=== PATIENT | male | born 1990 | race Caucasian/White ===

== ENCOUNTER 2022-01-04 03:32 | Inpatient (IN) | payer SELFPAY ==
[~2022-01-04] VITALS: Ht 182.9 cm; Wt 63.2 kg
[2022-01-04] MEDS ORDERED: LORAZEPAM 2MG/ML CPJ ONE (04:10)
[2022-01-04] MEDS ORDERED: SODIUM CHLORIDE 0.9% 1,000 ML IV ONE (04:15)
[2022-01-04] MEDS ORDERED: LORAZEPAM 2MG/ML CPJ IM ONE ×2 (04:15)
[2022-01-04 04:41] LABS: HEMATOCRIT. 47.2 % (42.0-52.0); HEMOGLOBIN. 16.4 g/dL (14.0-18.0); MEAN CORPUSCULAR HEMOGLOBIN 30.4 pg (28.0-32.0); MEAN CORPUSCULAR VOLUME 87.3 fL (80.0-94.0); MEAN PLATELET VOLUME 8.4 fl (7.4-10.4); PLATELET 423 x1000/uL (130-400); RED BLOOD CELL COUNT 5.41 mill/uL (4.7-6.1); RED CELL DISTRIBUTION WIDTH 13.9 % (11.6-14.6)
[2022-01-04 05:06] LABS: CHLORIDE 97 mEq/L (98-107)
[2022-01-04 05:08] LABS: CLARITY URINE CLOUDY (CLEAR); COLOR URINE DARK YELLOW (YELLOW); KETONES URINE 2+ (NEGATIVE); LEUKOCYTE ESTERASE URINE NEGATIVE (NEGATIVE); NITRITE URINE NEGATIVE (NEGATIVE); OCCULT BLOOD URINE NEGATIVE (NEGATIVE); PH URINE 5.5 (4.5-8.0); PROTEIN URINE 2+ (NEGATIVE); SPECIFIC GRAVITY URINE 1.027 (1.005-1.030); UROBILINOGEN URINE 0.2 E.U./dL (0.2-1.0)
[2022-01-04 05:14] LABS: ETHANOL BLOOD < 10 mg/dL
[2022-01-04] MEDS ORDERED: LEVETIRACETAM 1000MG PREMIX 100 ML IV ONE (05:45)
[2022-01-04 06:23] LABS: *AMPHETAMINES SCREEN URINE PRESUMTIVE POSITIVE (NEGATIVE); *BARBITURATES SCREEN URINE NEGATIVE (NEGATIVE); *BENZODIAZEPINES SCREEN URINE PRESUMTIVE POSITIVE (NEGATIVE); *COCAINE SCREEN URINE NEGATIVE (NEGATIVE); CANNABINOID URINE SCREEN NEGATIVE (NEGATIVE); METHADONE URINE SCREEN NEGATIVE (NEGATIVE); OPIATES URINE SCREEN NEGATIVE (NEGATIVE); PHENCYCLIDINE URINE SCREEN NEGATIVE (NEGATIVE)
[2022-01-04 07:33] LABS: PLATELET ESTIMATE SLIGHTLY INCREASED
[2022-01-04] MEDS ORDERED: CLONIDINE 0.1MG TABLET PO PRN (09:15)
[2022-01-04] MEDS ORDERED: LORAZEPAM 2MG/ML CPJ IV PRN (09:15)
[2022-01-04] MEDS ORDERED: DOCUSATE SODIUM 100MG CAPSULE PO PRN (09:15)
[2022-01-04] MEDS ORDERED: ACETAMINOPHEN 325MG TABLET PO PRN ×2 (09:15)
[2022-01-04] MEDS ORDERED: GUAIFENESIN 200MG/10ML SUGAR FREE UDC PO PRN (09:15)
[2022-01-04] MEDS ORDERED: IPRATROPIUM/ALBUTEROL 0.5-3(2.5)MG/3ML NEB NEB PRN (09:15)
[2022-01-04] MEDS ORDERED: MAGNESIUM/ALUMINUM HYDROXIDE/SIMETHICONE 30ML UDC PO PRN (09:15)
[2022-01-04] MEDS: ENOXAPARIN 40MG/0.4ML SYR SUBCUT SCH (10:00)
[2022-01-04 13:45] VITALS: BP 129/71
[2022-01-04 14:54] VITALS: BP 129/71
[2022-01-04 16:00] VITALS: BP 124/72
[2022-01-04] MEDS: ONDANSETRON HCL 4MG/2ML INJ IV PRN (17:35)
[2022-01-04 17:52] LABS: CREATINE KINASE 349 IU/L (39-308); CREATINE KINASE MB FRACTION 2.3 ng/mL (0.5-3.6)
[2022-01-04 20:00] VITALS: BP 123/75
[2022-01-04] MEDS: SODIUM CHLORIDE 0.9% 1,000 ML IV SCH ×2 (21:04→22:35)
[2022-01-04] MEDS: LEVETIRACETAM 500MG TABLET PO SCH (21:05)
[2022-01-04] MEDS: ZOLPIDEM TARTRATE 5MG TABLET PO PRN (21:05)
[2022-01-05] VITALS (7 sets, daily range): BP systolic 117–129; BP diastolic 66–80
[2022-01-05] MEDS: LEVETIRACETAM 500MG TABLET PO SCH ×2 (08:17→21:10)
[2022-01-05] MEDS ORDERED: LEVE750T4 MT (08:18)
[2022-01-05] MEDS: KETOROLAC 15MG/ML VIAL IV PRN ×2 (08:19→21:10)
[2022-01-05] MEDS: ENOXAPARIN 40MG/0.4ML SYR SUBCUT SCH (10:00)
[2022-01-05] MEDS: ONDANSETRON HCL 4MG/2ML INJ IV PRN ×3 (10:09→21:10)
[2022-01-05] MEDS: SODIUM CHLORIDE 0.9% 1,000 ML IV SCH (11:23)
[2022-01-06] VITALS: BP 126/75
[2022-01-06] MEDS: SODIUM CHLORIDE 0.9% 1,000 ML IV SCH (00:15)
[2022-01-06] MEDS: ONDANSETRON HCL 4MG/2ML INJ IV PRN (03:11)
[2022-01-06] MEDS: KETOROLAC 15MG/ML VIAL IV PRN (03:12)
[2022-01-06] MEDS: ZOLPIDEM TARTRATE 5MG TABLET PO PRN (03:19)
[2022-01-06 04:00] VITALS: BP 128/75
[2022-01-06 08:00] VITALS: BP 129/74
[2022-01-06] MEDS: LEVETIRACETAM 500MG TABLET PO SCH (09:10)
[2022-01-06] MEDS: ENOXAPARIN 40MG/0.4ML SYR SUBCUT SCH (10:00)
== END 2022-01-06 11:30 | disposition home or self-care (01) | DRG 53 ==
LOC: ER 03:43 → 8WST 06:13 → ENRESERV 10:14 → ER 13:09
PROVIDERS: ADMIT Internal Medicine; ATTEND Internal Medicine
DX: G40.409 Other generalized epilepsy and epileptic syndromes, not intractable, without status epilepticus (principal); G92.8 Other toxic encephalopathy; E83.41 Hypermagnesemia; E88.09 Other disorders of plasma-protein metabolism, not elsewhere classified; E83.52 Hypercalcemia; E86.0 Dehydration; F15.129 Other stimulant abuse with intoxication, unspecified
CPT/HCPCS: 36415; 71045; 80053; 80305; 80307; 80320; 80329; 81003; 82140; 82550; 82553; 83735; 84484; 85025; 99291; J1885; J1953; J2060; J2405; J7030; G0480